=== PATIENT | female | born 1995 | race Caucasian/White ===

== ENCOUNTER 2022-12-07 11:50 | Emergency (ER) | payer OTHER ==
[~2022-12-07] VITALS: Ht 152.4 cm; Wt 86.0 kg
[2022-12-07 12:44] VITALS: BP 123/61
== END 2022-12-07 17:35 | disposition left against medical advice (07) ==
LOC: ER 11:50
DX: Z53.21 Procedure and treatment not carried out due to patient leaving prior to being seen by health care provider (principal)
CPT/HCPCS: 99281